=== PATIENT | female | born 1965 | race African-American/Black ===

== ENCOUNTER 2017-07-21 16:05 | Emergency (ER) | payer BC ==
[~2017-07-21] VITALS: Ht 162.6 cm; Wt 84.2 kg
[2017-07-21 16:30] LABS: HEMOGLOBIN 11.4 G/DL (11.9-15.5); MCH 27.9 PG (29.0-34.0); MCHC 33.5 G/DL (30.0-36.0); MCV 83.3 FL (83-99); PLATELET COUNT 232 K/uL (156-360); RBC DIS.WIDTH-CV 13.1 % (11.8-14.6); RBC DIS.WIDTH-SD 39.5 % (39-53); RED BLOOD COUNT 4.08 M/uL (3.80-5.20); WHITE BLOOD COUNT 5.4 K/uL (4.1-10.2)
[2017-07-21 17:00] LABS: ALBUMIN 4.1 g/dL (3.2-4.8)
[2017-07-21 17:01] LABS: CHLORIDE 103 mEq/L (99-109); SODIUM 142 mEq/L (136-147)
[2017-07-21 17:03] LABS: GLUCOSE 101 mg/dL (70-99); TOTAL PROTEIN 7.7 g/dL (6.4-8.3)
[2017-07-21 17:05] LABS: TOTAL BILIRUBIN 0.3 mg/dL (0.0-1.0)
[2017-07-21 17:06] LABS: ALKALINE PHOSPHATASE 109 IU/L (3-129)
[2017-07-21 17:07] LABS: CREATININE 0.9 mg/dL (0.6-1.3)
[2017-07-21 17:08] LABS: AST (GOT) 26 IU/L (2-34); UREA NITROGEN (BUN) 14 mg/dL (9-23)
[2017-07-21 17:09] LABS: ALT (GPT) 26 IU/L (3-49); GFR ESTIMATE (CALCULATED) > 59 mL/min/
[2017-07-21 17:13] LABS: TROP-I INTERPRETATION NEGATIVE; TROPONIN-I < 0.01 ng/mL (0.0-0.30)
[2017-07-21 19:53] VITALS: BP 134/66
== END 2017-07-21 19:57 | disposition home or self-care (01) ==
LOC: EME 16:05
PROVIDERS: Emergency Medicine Emergency Medical Services
DX: E86.0 Dehydration (principal); R07.9 Chest pain, unspecified; R53.1 Weakness; R42 Dizziness and giddiness
CPT/HCPCS: 71045; 80053; 84484; 85027; 93005; 99281; 99285; J0780; J7120